=== PATIENT | female | born 1970 | race Caucasian/White ===

== ENCOUNTER 2019-10-03 06:29 | Observation (INO) | payer OTHER ==
[~2019-10-03] VITALS: Ht 160 cm; Wt 101.6 kg
[2019-10-03 06:41] VITALS: BP 138/74
[2019-10-03 16:25] VITALS: BP 105/71
[2019-10-03 20:55] VITALS: BP 121/63
[2019-10-04 05:58] VITALS: BP 113/57
[2019-10-04 08:07] VITALS: BP 128/68
[2019-10-04 10:12] VITALS: BP 128/68
[2019-10-04 10:24] VITALS: BP 128/68
== END 2019-10-04 11:34 | disposition home or self-care (01) ==
LOC: DS 06:29 → NM 08:00 → OR 08:00 → DS 08:00 → NM 09:00 → OR 11:00 → MU 14:29
PROVIDERS: ADMIT Surgery
DX: C50.911 Malignant neoplasm of unspecified site of right female breast (principal); C50.912 Malignant neoplasm of unspecified site of left female breast; E66.9 Obesity, unspecified; K21.9 Gastro-esophageal reflux disease without esophagitis; R10.13 Epigastric pain
CPT/HCPCS: G0378; J0690; J2001; J2175; J2250; J3010; J3480; J3490; Q9968